=== PATIENT | female | born 2000 | race Caucasian/White ===

== ENCOUNTER 2024-06-24 11:56 | Inpatient (IN) | payer OTHER ==
[~2024-06-24] VITALS: Ht 160 cm; Wt 89.9 kg
[2024-06-24 13:05] LABS: HEMATOCRIT 41.4 % (36.0-47.0); HEMOGLOBIN 14.1 g/dl (12.0-15.5); MEAN CORPUSCULAR HEMOGLOBIN 29.6 pg (27.0-33.0); MEAN CORPUSCULAR HGB CONC 34.1 g/dl (32.0-36.5); PLATELET COUNT, AUTOMATED 332 10^3/uL (150-450); RED BLOOD COUNT 4.76 10^6/uL (4.00-5.40); WHITE BLOOD COUNT 7.8 10^3/uL (4.0-10.0)
[2024-06-24 13:32] LABS: ETHYL ALCOHOL (ETHANOL) < 0.003 % (0.000-0.010)
[2024-06-24 13:34] LABS: ALBUMIN 4.1 G/DL (3.2-5.2); ALKALINE PHOSPHATASE 87 U/L (35-104); ALT/SGPT 16 U/L (7.0-40); AST/SGOT 12 U/L (<34); BILIRUBIN,DIRECT < 0.1 MG/DL (<0.4); BILIRUBIN,TOTAL 0.3 MG/DL (0.3-1.2); BLOOD UREA NITROGEN 13 MG/DL (9-23); CALCIUM LEVEL 9.5 MG/DL (8.5-10.1); CARBON DIOXIDE LEVEL 24 MMOL/L (20-31); CHLORIDE LEVEL 108 MMOL/L (98-107); CREATININE FOR GFR 0.82 MG/DL (0.55-1.30); GLOMERULAR FILTRATION RATE > 60.0 (>60); GLUCOSE, FASTING 83 MG/DL (60-100); SALICYLATE LEVEL < 3.0 MG/DL (<30); SODIUM LEVEL 141 MMOL/L (136-145); TOTAL PROTEIN 7.4 G/DL (5.7-8.2)
[2024-06-24 13:35] LABS: HCG, SERUM QUALITATIVE NEGATIVE (NEGATIVE)
[2024-06-24 13:36] LABS: THYROID STIMULATING HORMONE 2.305 uIU/ML (0.55-4.78)
[2024-06-24 14:21] LABS: AMPHETAMINES LEVEL URINE NEGATIVE (NEGATIVE); BARBITURATES URINE NEGATIVE (NEGATIVE); BENZODIAZEPINES URINE NEGATIVE (NEGATIVE); COCAINE METABOLITE URINE NEGATIVE (NEGATIVE); METHADONE URINE NEGATIVE (NEGATIVE)
[2024-06-24 14:22] LABS: CANNABINOIDS URINE NEGATIVE (NEGATIVE); OPIATES URINE NEGATIVE (NEGATIVE); PHENCYCLIDINE URINE NEGATIVE (NEGATIVE)
[2024-06-24] MEDS ORDERED: HOME MED LIST COMPLETE! XX SCH (14:50)
[2024-06-24] MEDS ORDERED: MOM 30ML SUSPENSION UDC PO PRN (15:25)
[2024-06-24] MEDS ORDERED: LORazepam 1 MG TAB PO PRN (15:25)
[2024-06-24] MEDS ORDERED: OLANZapine 5 MG TAB PO PRN (15:25)
[2024-06-24] MEDS ORDERED: ACETAMINOPHEN 325 MG TAB PO PRN (15:25)
[2024-06-24] MEDS ORDERED: diphenhydrAMINE 25MG CAP PO PRN (15:25)
[2024-06-24] MEDS ORDERED: MAALOX 30 ML SUSP *UDC PO PRN (15:25)
[2024-06-24] MEDS ORDERED: traZODone 50 MG TAB PO PRN (15:25)
[2024-06-24 16:18] VITALS: BP 118/62; TEMP 96.8; O2SAT 99
[2024-06-25 06:45] VITALS: BP 139/89; TEMP 97.9; O2SAT 97
[2024-06-25] MEDS: NICOTINE 14 MG/24 HR TRANSDERMAL TD SCH (09:00)
[2024-06-25] MEDS: SERTRALINE HCL 25 MG TABLET PO SCH (12:59)
[2024-06-25 15:39] VITALS: BP 117/70; TEMP 97.7; O2SAT 96
[2024-06-26 06:34] VITALS: BP 115/67; TEMP 97; O2SAT 97
[2024-06-26] MEDS: SERTRALINE HCL 50 MG TAB PO SCH (09:56)
[2024-06-26 15:13] VITALS: BP 144/68; TEMP 97; O2SAT 97
[2024-06-27 15:56] VITALS: BP 118/56; TEMP 97.1; O2SAT 97
[2024-06-28 06:41] VITALS: BP 126/59; TEMP 96.8; O2SAT 99
[2024-06-28 16:19] VITALS: BP 120/65; TEMP 97.8; O2SAT 96
[2024-06-29 06:57] VITALS: BP 130/58; TEMP 97.5; O2SAT 98
[2024-06-29 15:48] VITALS: BP 130/69; TEMP 98.1; O2SAT 97
[2024-06-30 07:09] VITALS: BP 104/65; TEMP 97.3; O2SAT 97
[2024-06-30 15:15] VITALS: BP 109/59; TEMP 97.2; O2SAT 98
[2024-07-01 06:28] VITALS: BP 134/80; TEMP 96.5; O2SAT 96
[2024-07-01] MEDS ORDERED: SERT50TA29 PO (07:58)
== END 2024-07-01 12:10 | disposition home or self-care (01) | DRG 885 ==
LOC: M ED 11:56 → M ED INP 15:24 → M PSY 16:12
PROVIDERS: ADMIT Internal Medicine; ATTEND Psychiatry & Neurology Psychiatry
DX: F32.1 Major depressive disorder, single episode, moderate (principal); R45.851 Suicidal ideations; F41.9 Anxiety disorder, unspecified; F17.290 Nicotine dependence, other tobacco product, uncomplicated; Z56.6 Other physical and mental strain related to work